=== PATIENT | male | born 1950 | race Caucasian/White ===

== ENCOUNTER 2017-11-14 14:19 | Outpatient (REF) | payer MEDICARE, SELFPAY ==
[2017-11-14 19:42] LABS: ALT 20 U/L (12-78); Anion Gap 7.1 mmol/L (3-11); BUN 11 mg/dL (7-18); CO2 28.9 mmol/L (21.0-32.0); CREATININE 0.92 mg/dL (0.70-1.30); Calcium 8.2 mg/dL (8.5-10.1); Chloride 106 mmol/L (98-107); Glucose 103 mg/dL (70-100); LDL CHOLESTEROL 63 mg/dL (<100); Sodium 142 mmol/L (136-145); TSH 0.67 uIU/mL (0.358-3.74)
[2017-11-14 19:46] LABS: COMMENT (LAB VIEW ONLY) 124.49 mg/dL; Microalb ug/mg Crea 65.9 ug/mg Cr
== END 2017-11-14 14:39 ==
LOC: NCHCN 14:19
PROVIDERS: PCP Internal Medicine; Visit Provider Internal Medicine
DX: R73.09 Other abnormal glucose (principal); I10 Essential (primary) hypertension; F33.2 Major depressive disorder, recurrent severe without psychotic features; Z63.4 Disappearance and death of family member
CPT/HCPCS: 80048; 83721; 82043; 82570; 84443; 84460

== ENCOUNTER 2018-09-05 14:47 | Outpatient (REF) | payer MEDICARE, SELFPAY ==
[2018-09-05 19:25] LABS: ALT 35 U/L (12-78); AST 14 U/L (15-37); Albumin 3.9 g/dL (3.4-5.0); Alkaline Phosphatase 72 U/L (46-116); Anion Gap 11.7 mmol/L (3-11); BUN 23 mg/dL (7-18); Bilirubin, Total 0.4 mg/dL (0.2-1.0); CO2 24.3 mmol/L (21.0-32.0); CREATININE 0.93 mg/dL (0.70-1.30); Calcium 8.6 mg/dL (8.5-10.1); Calculated LDL 63 mg/dL; Chloride 104 mmol/L (98-107); Cholesterol 114 mg/dL (50-200); Glucose 196 mg/dL (70-100); HDL Cholesterol 39 mg/dL (40-60); Potassium 4.4 mmol/L (3.5-5.1); Sodium 140 mmol/L (136-145); TSH 0.58 uIU/mL (0.358-3.74); Total Protein 6.5 g/dL (6.4-8.2); Triglyceride 62 mg/dL (30-150)
[2018-09-05 19:49] LABS: COMMENT (LAB VIEW ONLY) 131.45 mg/dL; Microalb ug/mg Crea 163.2 ug/mg Cr
== END 2018-09-05 15:07 ==
LOC: NCHCN 14:47
PROVIDERS: PCP Internal Medicine; Visit Provider Physician Assistant Medical
DX: E11.9 Type 2 diabetes mellitus without complications (principal)
CPT/HCPCS: 80053; 80061; 83721; 82043; 82570; 84443